=== PATIENT | female | born 1990 | race Caucasian/White ===

== ENCOUNTER 2016-05-17 23:24 | Emergency (ER) | payer OTHER ==
--- NOTE | ~2016-05-17 | CR173 ---
[facility] RADIOLOGY TEXT RESULTS PATIENT: STEPHANIE LOZOYA LOCATION: SED : [birth year] UNIT #: [id number] AGE: [address]: TABITHA SHI SEX: F ORDER DR: [id number] [place] [id number] MR#: [id number] Acc #: [id number] NAME: STEPHANIE LOZOYA : 1990 SEX: F STUDY DATE/TIME: 05/17/2016 23:17 UNIT: SED ROOM: STUDY DESCRIPTION: CR Knee 3 Views Rt Attending Physician: Tabitha Shi Ordering Physician: Physician Non-Staff Primary Care Physician: No Primary Care Physician MEDICAL IMAGING REPORT This report is preliminary unless electronic signature is present. EXAM Right knee series, 05/17/2016. HISTORY A 26-year-old female in the ED with right knee pain after injury. Fell at work tonight at 21:00 hours. TECHNIQUE Three-view right knee series. FINDINGS There is a nondisplaced vertical cleft in the lateral aspect of the patella. This is a typical location for congenital bipartite patella. However, on the patellar view, this linear lucency has more acute appearing margins. Correlate for point tenderness in this location to exclude an acute patellar fracture. There is no significant joint effusion, there is very little appreciable prepatellar soft tissue swelling. The remainder of the examination is negative. IMPRESSION 1. 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 See discussion above. 2. The remainder of the knee is negative. Dictated by... Garcia Bear M.D. THIS IS AN ELECTRONICALLY VERIFIED REPORT Garcia Bear M.D. at 05/18/2016 9:53 PM LAURA/caroline [facility] RADIOLOGY TEXT RESULTS PATIENT: STEPHANIE LOZOYA LOCATION: SED : 92 UNIT #: [id number] AGE: [address]: TABITHA SHI SEX: F ORDER DR: TD: 05/18/2016 06:44 JOB #: [id number] MEDICAL IMAGING REPORT Page 1 of 1
[~2016-05-17 23:24] MED LIST: CLARITIN5 MG; DEPO-PROVER150 MG/ML; NO MEDICATIONS
== END 2016-05-18 00:30 | disposition home or self-care (01) ==
LOC: SED 23:24
DX: S82.091A Other fracture of right patella, initial encounter for closed fracture (principal); F17.210 Nicotine dependence, cigarettes, uncomplicated; W01.0XXA Fall on same level from slipping, tripping and stumbling without subsequent striking against object, initial encounter; Y92.69 Other specified industrial and construction area as the place of occurrence of the external cause; Y99.0 Civilian activity done for income or pay
CPT/HCPCS: 29505; 73562; 99283